=== PATIENT | female | born 2000 | race American Indian/Alaskan Native ===

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

== ENCOUNTER 2019-04-04 18:49 | Emergency (ER) | payer SELFPAY ==
[2019-04-04 19:58] VITALS: BP 128/79
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
[2019-04-04] MEDS ORDERED: IBUPROFEN 600 MG TAB PO ONE (23:46)
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
== END 2019-04-05 02:00 | disposition left against medical advice (07) ==
LOC: ED 18:49
DX: M54.5 Low back pain (principal); M25.511 Pain in right shoulder; M25.512 Pain in left shoulder; R51 Headache; V03.90XA Pedestrian on foot injured in collision with car, pick-up truck or van, unspecified whether traffic or nontraffic accident, initial encounter; Y93.01 Activity, walking, marching and hiking; Y92.410 Unspecified street and highway as the place of occurrence of the external cause; Y99.8 Other external cause status
CPT/HCPCS: 72040

== ENCOUNTER 2019-05-04 16:55 | Emergency (ER) | payer SELFPAY ==
[2019-05-04 17:01] VITALS: BP 123/73
--- NOTE | 2019-05-04 17:50 | Emergency Department Report ---
Chief Complaint: Abdominal Pain Stated Complaint: STOMACH PAIN Time Seen by Provider: 05/04/19 17:46 - HPI History of Present Illness: pt presents to ED stating that she missed her cycle last month and thinks she may be states she took a test and was positive she denies any symptoms of f/c/v/n/abd pain she is requeting a preg test - ROS Review of Systems: As noted in HPi - Exam Vital Signs: Vital Signs 05/04/19 17:00 Temperature 98.2 F Pulse Rate 96 H Respiratory 20 Rate Blood Pressure 123/73 [Right] O2 Sat by Pulse 100 Oximetry Physical Exam: AAO 3. The patient is temperature without any problems she is in no acute distress. MSE screening note: Focused history and physical exam performed. Due to findings the following was ordered: ED Medical Decision Making - Medical Decision Making This 18-year-old female who presented for confirmation of Discussed with the patient that this is not a medical emergency. aid resources given to patient Patient also told to follow-up with [facility] Signs are normal patient is in no acute distress ED Disposition for MSE Clinical Impression: Positive home test Disposition: DC-01 TO HOME OR SELFCARE Is pt being admited?: No Does the pt Need Aspirin: No Condition: Stable Instructions: (ED) Referrals: [facility] [Provider Group] - 3-5 Days [facility] [Provider Group] - 3-5 Days [facility] [Provider Group] - 3-5 Days Forms: Work/School Release Form(ED) Time of Disposition: 17:49
== END 2019-05-04 17:55 | disposition home or self-care (01) ==
LOC: ED 16:55
DX: Z32.01 Encounter for pregnancy test, result positive (principal)
CPT/HCPCS: 99282